=== PATIENT | female | born 1970 | race Caucasian/White ===

== ENCOUNTER 2019-09-30 17:19 | Observation (INO) ==
[2019-09-30] MEDS ORDERED: 0.9 % Sodium Chloride 1,000 ML IVC ONE ×2 (18:04→20:19)
[2019-09-30 18:12] LABS: Bilirubin,Urine Negative (Negative); Blood,Urine Negative (Negative); Clarity,Urine Slightly Cloudy (Clear); Color,Urine Yellow (Yellow); Glucose,Urine (UA) 500 mg/dL (Normal); Ketones,Urine Negative (Negative); Leukocyte Esterase,Urine Trace (Negative); Nitrite,Urine Negative (Negative); Protein,Urine 100 mg/dL (Neg-Trace); Specific Gravity,Urine 1.015 (1.010-1.025); Urobilinogen,Urine Normal (Normal)
[2019-09-30 18:14] LABS: Bacteria,Urine Few per hpf (None-Few); Granular Casts,Urine Few per lpf (None Seen); RBC,Urine 0-3 per hpf (0-3); Squamous Epithelial Cell,Urine Many per hpf (None-Few)
[2019-09-30 18:26] LABS: Basophils # 0.1 K/mcL (0.0-0.2); Basophils % 0.8 %; Eosinophils # 0.3 K/mcL (0.0-0.6); Eosinophils % 2.4 %; Hemoglobin 14.6 g/dL (11.5-15.4); Immature Granulocytes % 0.4 % (0-4); Lymphocytes # 2.4 K/mcL (0.6-4.6); Lymphocytes % 22.8 %; Mean Corpuscular Hemoglobin 30.9 pg (28.0-33.3); Mean Corpuscular Volume 91.1 fL (83.0-100.0); Mean Platelet Volume 11.8 fL (9.4-12.4); Monocytes % 9.5 %; Neutrophils # 6.7 K/mcL (1.6-8.9); Platelet Count 335 K/mcL (140-400); Red Blood Count 4.72 M/mcL (3.82-4.97); Red Cell Distribution Width 13.1 % (11.5-14.5); Segmented Neutrophils % 64.1 %; White Blood Count 10.4 K/mcL (4.3-11.1)
[2019-09-30 18:42] LABS: Calcium 9.4 mg/dL (8.6-10.3); Magnesium 2.1 mg/dL (1.6-2.6); Potassium 4.2 mEq/L (3.5-5.1)
[2019-09-30] MEDS ORDERED: cefTRIAXone 1,000 MG in 0.9 % Sodium Chloride Mini Bag 100 ML IVPB ONE (18:55)
[2019-09-30] MEDS ORDERED: 0.9 % Sodium Chloride 1,000 ML ONE (19:34)
[2019-09-30] MEDS ORDERED: 0.9 % Sodium Chloride 1,000 ML IVC SCH (19:45)
[2019-09-30] MEDS ORDERED: Naloxone 0.4 MG/ML INJ IVP PRN (20:19)
[2019-09-30] MEDS ORDERED: (Subcutaneous Insulin Pump [T:Slim] 1 EACH) SQ SCH (20:19)
[2019-09-30] MEDS: 0.9 % Sodium Chloride 1,000 ML IVC SCH (20:46)
[2019-09-30] MEDS ORDERED: Gabapentin 300 MG CAPSULE PO SCH (21:00)
[2019-10-01] MEDS: 0.9 % Sodium Chloride 1,000 ML IVC SCH (04:20)
[2019-10-01 09:58] VITALS: BP 142/73
[2019-10-01 10:20] LABS: Basophils # 0.1 K/mcL (0.0-0.2); Basophils % 0.9 %; Eosinophils # 0.2 K/mcL (0.0-0.6); Eosinophils % 2.8 %; Hematocrit 39.8 % (35.3-44.9); Hemoglobin 13.2 g/dL (11.5-15.4); Immature Granulocytes % 0.4 % (0-4); Lymphocytes # 2.1 K/mcL (0.6-4.6); Lymphocytes % 25.2 %; Mean Corpuscular HGB Conc 33.2 g/dL (31.6-35.5); Mean Corpuscular Hemoglobin 30.9 pg (28.0-33.3); Mean Corpuscular Volume 93.2 fL (83.0-100.0); Mean Platelet Volume 11.9 fL (9.4-12.4); Monocytes # 0.7 K/mcL (0.0-1.3); Monocytes % 8.3 %; Neutrophils # 5.1 K/mcL (1.6-8.9); Platelet Count 308 K/mcL (140-400); Red Blood Count 4.27 M/mcL (3.82-4.97); Red Cell Distribution Width 13.4 % (11.5-14.5); Segmented Neutrophils % 62.4 %; White Blood Count 8.2 K/mcL (4.3-11.1)
[2019-10-01 10:46] LABS: Albumin 3.6 g/dL (3.5-5.7); Albumin/Globulin Ratio 1.4 (1.1-2.2); Bilirubin,Total 0.4 mg/dL (0.3-1.0); Calcium 8.3 mg/dL (8.6-10.3); Globulin 2.6 g/dL (2.4-3.5); Total Protein 6.2 g/dL (6.4-8.9)
== END 2019-10-01 11:15 | disposition home or self-care (01) ==
LOC: EMEROOPIK 17:19 → INPPIK 17:19
PROVIDERS: ADMIT Internal Medicine; ATTEND Internal Medicine

== ENCOUNTER 2020-08-01 13:08 | Inpatient (IN) ==
[2020-08-01] MEDS ORDERED: Nitroglycerin 0.4 MG TAB.SUBL SL PRN (14:43)
[2020-08-01] MEDS: Gabapentin 300 MG CAPSULE PO SCH (21:07)
[2020-08-01] MEDS ORDERED: *HR* Dextrose 50 % in Water (Vial) 50 ML VIAL IVP PRN (22:21)
[2020-08-01] MEDS ORDERED: Dextrose Gel 15 GM/37.5 ML TUBE PO PRN (22:21)
[2020-08-01] MEDS ORDERED: D5% in Water 1,000 ML IVC PRN (22:21)
[2020-08-01] MEDS ORDERED: Insulin DETEMIR 100 UNIT/ML per UNIT SUBQ ONE (22:30)
[2020-08-02] MEDS: Aspirin Enteric Coated 81 MG Tablet PO SCH (08:04)
[2020-08-02] MEDS: Isosorbide MONOnitrate (24 HR) 30 MG TAB.ER.24H PO SCH (08:05)
[2020-08-02] MEDS: Insulin LISPRO 300 UNITS/3 ML VIAL SUBQ SCH ×4 (08:07→21:14)
[2020-08-02] MEDS ORDERED: Insulin DETEMIR 100 UNIT/ML X5UNITS SUBQ SCH ×2 (09:00→21:00)
[2020-08-02] MEDS: Micafungin 100 MG in 0.9 % Sodium Chloride Mini Bag 100 ML IVPB SCH (18:55)
[2020-08-02] MEDS ORDERED: cefTRIAXone 2,000 MG in Water for inj. (sterile) 20 ML IVP SCH (19:00)
[2020-08-02] MEDS: Gabapentin 300 MG CAPSULE PO SCH (21:15)
[2020-08-02] MEDS: DAPTOmycin 400 MG in 0.9 % Sodium Chloride 100 ML IVPB SCH (21:52)
[2020-08-02] MEDS: Vancomycin Oral Soln 125 MG/2.5 ML UDC PO SCH (21:54)
[2020-08-02] MEDS ORDERED: Erythromycin Lactobionate 250 MG in 0.9 % Sodium Chloride 100 ML IVPB SCH (22:00)
[2020-08-03] MEDS: Dextrose Gel 15 GM/37.5 ML TUBE PO PRN ×2 (05:55→05:56)
[2020-08-03 07:10] LABS: Hematocrit 31.9 % (35.3-44.9); Hemoglobin 10.1 g/dL (11.5-15.4); Mean Corpuscular HGB Conc 31.7 g/dL (31.6-35.5); Mean Corpuscular Hemoglobin 29.7 pg (28.0-33.3); Mean Corpuscular Volume 93.8 fL (83.0-100.0); Mean Platelet Volume 10.5 fL (9.4-12.4); Platelet Count 628 K/mcL (140-400); Red Cell Distribution Width 23.2 % (11.5-14.5); White Blood Count 19.7 K/mcL (4.3-11.1)
[2020-08-03 08:23] LABS: BUN/Creatinine Ratio 17 (6-26); Blood Urea Nitrogen 9 mg/dL (6-20); Calcium 8.1 mg/dL (8.6-10.3); Carbon Dioxide 33 mEq/L (23-29); Chloride 94 mEq/L (98-107); Glucose 51 mg/dL (70-105); Magnesium 1.3 mg/dL (1.6-2.6); Osmolality,Calculated 278 (280-300); Potassium 3.1 mEq/L (3.5-5.1); Sodium 136 mEq/L (136-145); eGFR For African Americans > 60 (> 60); eGFR For Non-African Americans > 60 (> 60)
[2020-08-03] MEDS: Insulin LISPRO 300 UNITS/3 ML VIAL SUBQ SCH ×4 (08:25→21:09)
[2020-08-03] MEDS ORDERED: D5% in 0.9% NACL 1,000 ML IVC SCH (08:45)
[2020-08-03 09:02] LABS: Basophils % 0.2 %; Eosinophils # 0.3 K/mcL (0.0-0.6); Eosinophils % 1.3 %; Hematocrit 27.9 % (35.3-44.9); Hemoglobin 8.8 g/dL (11.5-15.4); Immature Granulocytes % 0.5 % (0-4); Lymphocytes # 1.5 K/mcL (0.6-4.6); Lymphocytes % 6.6 %; Mean Corpuscular HGB Conc 31.5 g/dL (31.6-35.5); Mean Corpuscular Hemoglobin 29.5 pg (28.0-33.3); Mean Corpuscular Volume 93.6 fL (83.0-100.0); Mean Platelet Volume 10.4 fL (9.4-12.4); Monocytes # 1.5 K/mcL (0.0-1.3); Monocytes % 6.9 %; Platelet Count 527 K/mcL (140-400); Red Blood Count 2.98 M/mcL (3.82-4.97); Segmented Neutrophils % 84.5 %; White Blood Count 22.3 K/mcL (4.3-11.1)
[2020-08-03 09:10] LABS: ABG Base Excess 6 mEq/L (-2 to 3); ABG HCO3 32 mEq/L (21-27); ABG Oxygen Saturation 91 % (95-98); ABG PCO2 47 mmHg (35-45); ABG PH 7.44 pH Units (7.32-7.45); ABG PO2 59 mmHg (85-104); ABG TCO2 33 mEq/L (20-26)
[2020-08-03 09:14] LABS: Neutrophils # 18.8 K/mcL (1.6-8.9)
[2020-08-03 09:20] LABS: Albumin/Globulin Ratio 0.6 (1.1-2.2); Bilirubin,Direct 0.4 mg/dL (0.0-0.2); Bilirubin,Indirect 0.5 mg/dL (0.0-1.0); Bilirubin,Total 0.9 mg/dL (0.3-1.0); Globulin 3.1 g/dL (2.4-3.5); Total Protein 5.1 g/dL (6.4-8.9)
[2020-08-03 10:03] LABS: C-Reactive Protein 137 mg/L (Less than 10)
[2020-08-03] MEDS: Azithromycin 500 MG in 0.9 % Sodium Chloride 250 ML IVPB SCH (11:22)
[2020-08-03] MEDS: Aspirin Enteric Coated 81 MG Tablet PO SCH (11:28)
[2020-08-03] MEDS: Isosorbide MONOnitrate (24 HR) 30 MG TAB.ER.24H PO SCH (11:28)
[2020-08-03] MEDS: Vancomycin Oral Soln 125 MG/2.5 ML UDC PO SCH ×2 (11:40→21:08)
[2020-08-03] MEDS: Acetaminophen 325 MG TABLET PO PRN (12:24)
[2020-08-03] MEDS: Ondansetron ODT 4 MG TAB.RAPDIS SL PRN (14:11)
[2020-08-03] MEDS: cefTRIAXone 2,000 MG in 0.9 % Sodium Chloride Mini Bag 100 ML IVP SCH (18:28)
[2020-08-03] MEDS: Micafungin 100 MG in 0.9 % Sodium Chloride Mini Bag 100 ML IVPB SCH (18:58)
[2020-08-03] MEDS ORDERED: cefTRIAXone 2,000 MG in 0.9 % Sodium Chloride Mini Bag 100 ML IVP SCH (19:00)
[2020-08-03] MEDS: DAPTOmycin 400 MG in 0.9 % Sodium Chloride 100 ML IVPB SCH (21:07)
[2020-08-03] MEDS: Gabapentin 300 MG CAPSULE PO SCH (21:08)
[2020-08-04 07:39] LABS: BUN/Creatinine Ratio 16 (6-26); Blood Urea Nitrogen 8 mg/dL (6-20); Calcium 7.5 mg/dL (8.6-10.3); Carbon Dioxide 32 mEq/L (23-29); Chloride 92 mEq/L (98-107); Glucose 392 mg/dL (70-105); Magnesium 1.5 mg/dL (1.6-2.6); Osmolality,Calculated 289 (280-300); Potassium 3.8 mEq/L (3.5-5.1); Sodium 132 mEq/L (136-145); eGFR For African Americans > 60 (> 60); eGFR For Non-African Americans > 60 (> 60)
[2020-08-04] MEDS: Insulin LISPRO 300 UNITS/3 ML VIAL SUBQ SCH ×4 (07:58→21:24)
[2020-08-04] MEDS: Isosorbide MONOnitrate (24 HR) 30 MG TAB.ER.24H PO SCH (08:12)
[2020-08-04] MEDS: Aspirin Enteric Coated 81 MG Tablet PO SCH (08:12)
[2020-08-04] MEDS: Vancomycin Oral Soln 125 MG/2.5 ML UDC PO SCH ×2 (08:19→22:27)
[2020-08-04] MEDS: Azithromycin 500 MG in 0.9 % Sodium Chloride 250 ML IVPB SCH (08:21)
[2020-08-04] MEDS ORDERED: Insulin DETEMIR 100 UNIT/ML X5UNITS SUBQ SCH ×2 (09:00→21:00)
[2020-08-04] MEDS: Magnesium Oxide 400 MG TABLET PO SCH (12:12)
[2020-08-04] MEDS: Ondansetron ODT 4 MG TAB.RAPDIS SL PRN ×2 (13:11→18:51)
[2020-08-04] MEDS: cefTRIAXone 2,000 MG in 0.9 % Sodium Chloride Mini Bag 100 ML IVP SCH (17:56)
[2020-08-04] MEDS: Micafungin 100 MG in 0.9 % Sodium Chloride Mini Bag 100 ML IVPB SCH (18:34)
[2020-08-04] MEDS: DAPTOmycin 400 MG in 0.9 % Sodium Chloride 100 ML IVPB SCH (22:26)
[2020-08-04] MEDS: Gabapentin 300 MG CAPSULE PO SCH (22:27)
[2020-08-04] MEDS: Acetaminophen 325 MG TABLET PO PRN (22:40)
[2020-08-05] MEDS: Lidocaine 4% CREAM (LMX) 5 GM TP PRN (01:33)
[2020-08-05] MEDS: Magnesium Oxide 400 MG TABLET PO SCH (09:25)
[2020-08-05] MEDS: Isosorbide MONOnitrate (24 HR) 30 MG TAB.ER.24H PO SCH (09:25)
[2020-08-05] MEDS: Aspirin Enteric Coated 81 MG Tablet PO SCH (09:26)
[2020-08-05] MEDS: Insulin LISPRO 300 UNITS/3 ML VIAL SUBQ SCH ×4 (09:26→21:47)
[2020-08-05] MEDS: Insulin DETEMIR 100 UNIT/ML X5UNITS SUBQ SCH (09:26)
[2020-08-05] MEDS: Vancomycin Oral Soln 125 MG/2.5 ML UDC PO SCH ×2 (09:26→21:40)
[2020-08-05] MEDS: Azithromycin 500 MG in 0.9 % Sodium Chloride 250 ML IVPB SCH (09:27)
[2020-08-05] MEDS: lisinopriL 5 MG TABLET PO SCH (09:27)
[2020-08-05 09:48] LABS: Basophils # 0.1 K/mcL (0.0-0.2); Basophils % 0.8 %; Eosinophils # 0.4 K/mcL (0.0-0.6); Eosinophils % 2.8 %; Hematocrit 28.9 % (35.3-44.9); Hemoglobin 9.4 g/dL (11.5-15.4); Immature Granulocytes % 0.6 % (0-4); Lymphocytes # 1.7 K/mcL (0.6-4.6); Lymphocytes % 12.9 %; Mean Corpuscular HGB Conc 32.5 g/dL (31.6-35.5); Mean Corpuscular Volume 92.3 fL (83.0-100.0); Mean Platelet Volume 10.5 fL (9.4-12.4); Monocytes # 1.3 K/mcL (0.0-1.3); Monocytes % 9.3 %; Neutrophils # 9.9 K/mcL (1.6-8.9); Platelet Count 574 K/mcL (140-400); Red Blood Count 3.13 M/mcL (3.82-4.97); Red Cell Distribution Width 21.2 % (11.5-14.5); Segmented Neutrophils % 73.6 %; White Blood Count 13.4 K/mcL (4.3-11.1)
[2020-08-05 10:16] LABS: Alanine Aminotransferase 17 Units/L (7-52); Albumin 2.3 g/dL (3.5-5.7); Albumin/Globulin Ratio 0.7 (1.1-2.2); Alkaline Phosphatase > 1500 Units/L (34-104); Aspartate Amino Transferase 49 Units/L (13-39); BUN/Creatinine Ratio 17 (6-26); Blood Urea Nitrogen 10 mg/dL (6-20); Carbon Dioxide 31 mEq/L (23-29); Chloride 93 mEq/L (98-107); Globulin 3.3 g/dL (2.4-3.5); Glucose 176 mg/dL (70-105); Osmolality,Calculated 277 (280-300); Potassium 3.9 mEq/L (3.5-5.1); Sodium 132 mEq/L (136-145); Total Protein 5.6 g/dL (6.4-8.9); eGFR For African Americans > 60 (> 60); eGFR For Non-African Americans > 60 (> 60)
[2020-08-05] MEDS: Micafungin 100 MG in 0.9 % Sodium Chloride Mini Bag 100 ML IVPB SCH (17:33)
[2020-08-05] MEDS: cefTRIAXone 2,000 MG in 0.9 % Sodium Chloride Mini Bag 100 ML IVP SCH (17:34)
[2020-08-05] MEDS: Gabapentin 300 MG CAPSULE PO SCH (21:40)
[2020-08-05] MEDS: DAPTOmycin 400 MG in 0.9 % Sodium Chloride 100 ML IVPB SCH (21:40)
[2020-08-06] MEDS: Aspirin Enteric Coated 81 MG Tablet PO SCH (08:35)
[2020-08-06] MEDS: Magnesium Oxide 400 MG TABLET PO SCH (08:35)
[2020-08-06] MEDS: Isosorbide MONOnitrate (24 HR) 30 MG TAB.ER.24H PO SCH (08:36)
[2020-08-06] MEDS: lisinopriL 5 MG TABLET PO SCH (08:36)
[2020-08-06] MEDS: Vancomycin Oral Soln 125 MG/2.5 ML UDC PO SCH ×2 (08:36→20:30)
[2020-08-06] MEDS: Azithromycin 500 MG in 0.9 % Sodium Chloride 250 ML IVPB SCH (08:38)
[2020-08-06] MEDS: Insulin DETEMIR 100 UNIT/ML X5UNITS SUBQ SCH (08:39)
[2020-08-06] MEDS: Insulin LISPRO 300 UNITS/3 ML VIAL SUBQ SCH ×4 (08:40→20:29)
[2020-08-06] MEDS: cefTRIAXone 2,000 MG in 0.9 % Sodium Chloride Mini Bag 100 ML IVP SCH (17:02)
[2020-08-06] MEDS: Micafungin 100 MG in 0.9 % Sodium Chloride Mini Bag 100 ML IVPB SCH (17:55)
[2020-08-06] MEDS: Ondansetron ODT 4 MG TAB.RAPDIS SL PRN (18:00)
[2020-08-06] MEDS: DAPTOmycin 400 MG in 0.9 % Sodium Chloride 100 ML IVPB SCH (20:45)
[2020-08-06] MEDS: Gabapentin 300 MG CAPSULE PO SCH (20:56)
[2020-08-07] MEDS: Azithromycin 500 MG in 0.9 % Sodium Chloride 250 ML IVPB SCH (08:34)
[2020-08-07] MEDS: Isosorbide MONOnitrate (24 HR) 30 MG TAB.ER.24H PO SCH (08:36)
[2020-08-07] MEDS: Magnesium Oxide 400 MG TABLET PO SCH (08:36)
[2020-08-07] MEDS: Aspirin Enteric Coated 81 MG Tablet PO SCH (08:36)
[2020-08-07] MEDS: lisinopriL 5 MG TABLET PO SCH (08:36)
[2020-08-07] MEDS: Vancomycin Oral Soln 125 MG/2.5 ML UDC PO SCH ×2 (08:38→20:51)
[2020-08-07] MEDS: Insulin LISPRO 300 UNITS/3 ML VIAL SUBQ SCH ×4 (08:40→20:53)
[2020-08-07] MEDS: metroNIDAZOLE 500 MG TABLET PO SCH ×2 (14:09→20:51)
[2020-08-07] MEDS: Micafungin 100 MG in 0.9 % Sodium Chloride Mini Bag 100 ML IVPB SCH (18:01)
[2020-08-07] MEDS: DAPTOmycin 600 MG in 0.9 % Sodium Chloride 100 ML IVPB SCH (20:50)
[2020-08-07] MEDS: Gabapentin 300 MG CAPSULE PO SCH (20:51)
[2020-08-07] MEDS: Cefdinir 300 MG CAPSULE PO SCH (20:53)
[2020-08-08] MEDS ORDERED: Insulin LISPRO 300 UNITS/3 ML VIAL SUBQ ONE (00:57)
[2020-08-08] MEDS: Ondansetron ODT 4 MG TAB.RAPDIS SL PRN ×2 (01:02→20:35)
[2020-08-08] MEDS: Insulin LISPRO 300 UNITS/3 ML VIAL SUBQ SCH ×4 (08:40→20:36)
[2020-08-08] MEDS: Azithromycin 500 MG in 0.9 % Sodium Chloride 250 ML IVPB SCH (08:40)
[2020-08-08] MEDS: Vancomycin Oral Soln 125 MG/2.5 ML UDC PO SCH ×2 (08:41→20:26)
[2020-08-08] MEDS: Acetaminophen 325 MG TABLET PO PRN ×2 (08:41→20:28)
[2020-08-08] MEDS: metroNIDAZOLE 500 MG TABLET PO SCH ×2 (08:42→20:32)
[2020-08-08] MEDS: Cefdinir 300 MG CAPSULE PO SCH ×2 (08:42→20:32)
[2020-08-08] MEDS: Aspirin Enteric Coated 81 MG Tablet PO SCH (08:42)
[2020-08-08] MEDS: Isosorbide MONOnitrate (24 HR) 30 MG TAB.ER.24H PO SCH (08:43)
[2020-08-08] MEDS: Magnesium Oxide 400 MG TABLET PO SCH (08:43)
[2020-08-08] MEDS: lisinopriL 5 MG TABLET PO SCH (08:43)
[2020-08-08] MEDS: Micafungin 100 MG in 0.9 % Sodium Chloride Mini Bag 100 ML IVPB SCH (19:19)
[2020-08-08] MEDS: DAPTOmycin 600 MG in 0.9 % Sodium Chloride 100 ML IVPB SCH (20:26)
[2020-08-08] MEDS: Gabapentin 300 MG CAPSULE PO SCH (20:32)
[2020-08-09] MEDS ORDERED: Insulin LISPRO 300 UNITS/3 ML VIAL SUBQ SCH (03:04)
[2020-08-09] MEDS ORDERED: Insulin LISPRO 300 UNITS/3 ML VIAL SUBQ ONE (03:04)
[2020-08-09] MEDS: Azithromycin 500 MG in 0.9 % Sodium Chloride 250 ML IVPB SCH (07:52)
[2020-08-09] MEDS: Vancomycin Oral Soln 125 MG/2.5 ML UDC PO SCH ×2 (07:52→22:32)
[2020-08-09] MEDS: Aspirin Enteric Coated 81 MG Tablet PO SCH (07:53)
[2020-08-09] MEDS: Cefdinir 300 MG CAPSULE PO SCH ×2 (07:53→22:33)
[2020-08-09] MEDS: Isosorbide MONOnitrate (24 HR) 30 MG TAB.ER.24H PO SCH (07:53)
[2020-08-09] MEDS: Magnesium Oxide 400 MG TABLET PO SCH (07:53)
[2020-08-09] MEDS: metroNIDAZOLE 500 MG TABLET PO SCH ×2 (07:53→22:33)
[2020-08-09] MEDS: lisinopriL 5 MG TABLET PO SCH (07:54)
[2020-08-09] MEDS: Insulin LISPRO 300 UNITS/3 ML VIAL SUBQ SCH ×4 (07:55→22:47)
[2020-08-09] MEDS: Erythromycin Lactobionate 250 MG in 0.9 % Sodium Chloride 100 ML IVPB SCH ×2 (10:02→17:26)
[2020-08-09] MEDS: Micafungin 100 MG in 0.9 % Sodium Chloride Mini Bag 100 ML IVPB SCH (19:25)
[2020-08-09] MEDS: Ondansetron ODT 4 MG TAB.RAPDIS SL PRN (20:15)
[2020-08-09] MEDS ORDERED: Insulin DETEMIR 100 UNIT/ML X5UNITS SUBQ SCH (21:00)
[2020-08-09] MEDS: DAPTOmycin 600 MG in 0.9 % Sodium Chloride 100 ML IVPB SCH (22:32)
[2020-08-09] MEDS: Gabapentin 300 MG CAPSULE PO SCH (22:33)
[2020-08-10] MEDS: Erythromycin Lactobionate 250 MG in 0.9 % Sodium Chloride 100 ML IVPB SCH ×3 (02:36→18:07)
[2020-08-10 06:40] LABS: Basophils # 0.2 K/mcL (0.0-0.2); Basophils % 1.3 %; Eosinophils # 0.5 K/mcL (0.0-0.6); Eosinophils % 4.4 %; Hematocrit 31.6 % (35.3-44.9); Hemoglobin 10.3 g/dL (11.5-15.4); Immature Granulocytes % 0.4 % (0-4); Lymphocytes # 1.9 K/mcL (0.6-4.6); Lymphocytes % 16.7 %; Mean Corpuscular HGB Conc 32.6 g/dL (31.6-35.5); Mean Corpuscular Hemoglobin 30.5 pg (28.0-33.3); Mean Corpuscular Volume 93.5 fL (83.0-100.0); Mean Platelet Volume 10.2 fL (9.4-12.4); Monocytes # 0.7 K/mcL (0.0-1.3); Neutrophils # 8.1 K/mcL (1.6-8.9); Platelet Count 667 K/mcL (140-400); Red Blood Count 3.38 M/mcL (3.82-4.97); Red Cell Distribution Width 20.7 % (11.5-14.5); Segmented Neutrophils % 71.2 %; White Blood Count 11.3 K/mcL (4.3-11.1)
[2020-08-10 07:42] LABS: BUN/Creatinine Ratio 22 (6-26); Blood Urea Nitrogen 13 mg/dL (6-20); Carbon Dioxide 27 mEq/L (23-29); Chloride 100 mEq/L (98-107); Osmolality,Calculated 277 (280-300); Potassium 3.2 mEq/L (3.5-5.1); eGFR For African Americans > 60 (> 60); eGFR For Non-African Americans > 60 (> 60)
[2020-08-10 07:43] LABS: Sodium 135 mEq/L (136-145)
[2020-08-10] MEDS: Insulin LISPRO 300 UNITS/3 ML VIAL SUBQ SCH ×4 (07:58→20:31)
[2020-08-10] MEDS: metroNIDAZOLE 500 MG TABLET PO SCH ×2 (08:30→20:31)
[2020-08-10] MEDS: Vancomycin Oral Soln 125 MG/2.5 ML UDC PO SCH ×2 (08:30→20:28)
[2020-08-10] MEDS: Magnesium Oxide 400 MG TABLET PO SCH (08:30)
[2020-08-10] MEDS: lisinopriL 5 MG TABLET PO SCH (08:30)
[2020-08-10] MEDS: Aspirin Enteric Coated 81 MG Tablet PO SCH (08:31)
[2020-08-10] MEDS: Isosorbide MONOnitrate (24 HR) 30 MG TAB.ER.24H PO SCH (08:31)
[2020-08-10] MEDS: Cefdinir 300 MG CAPSULE PO SCH ×2 (08:31→20:30)
[2020-08-10] MEDS: Micafungin 100 MG in 0.9 % Sodium Chloride Mini Bag 100 ML IVPB SCH (18:57)
[2020-08-10] MEDS: Gabapentin 300 MG CAPSULE PO SCH (20:31)
[2020-08-10] MEDS: DAPTOmycin 600 MG in 0.9 % Sodium Chloride 100 ML IVPB SCH (20:32)
[2020-08-11] MEDS: Erythromycin Lactobionate 250 MG in 0.9 % Sodium Chloride 100 ML IVPB SCH ×3 (00:25→16:51)
[2020-08-11] MEDS: Lidocaine 4% CREAM (LMX) 5 GM TP PRN (01:00)
[2020-08-11] MEDS: Cefdinir 300 MG CAPSULE PO SCH ×2 (08:20→21:02)
[2020-08-11] MEDS: Aspirin Enteric Coated 81 MG Tablet PO SCH (08:20)
[2020-08-11] MEDS: Magnesium Oxide 400 MG TABLET PO SCH (08:21)
[2020-08-11] MEDS: lisinopriL 5 MG TABLET PO SCH (08:21)
[2020-08-11] MEDS: Isosorbide MONOnitrate (24 HR) 30 MG TAB.ER.24H PO SCH (08:21)
[2020-08-11] MEDS: Vancomycin Oral Soln 125 MG/2.5 ML UDC PO SCH ×2 (08:21→21:03)
[2020-08-11] MEDS: metroNIDAZOLE 500 MG TABLET PO SCH ×2 (08:21→21:04)
[2020-08-11] MEDS: Insulin LISPRO 300 UNITS/3 ML VIAL SUBQ SCH ×4 (08:22→21:04)
[2020-08-11] MEDS: Micafungin 100 MG in 0.9 % Sodium Chloride Mini Bag 100 ML IVPB SCH (18:47)
[2020-08-11] MEDS: Acetaminophen 325 MG TABLET PO PRN (18:58)
[2020-08-11] MEDS: DAPTOmycin 600 MG in 0.9 % Sodium Chloride 100 ML IVPB SCH (21:02)
[2020-08-11] MEDS: Gabapentin 300 MG CAPSULE PO SCH (21:02)
[2020-08-12] MEDS: Erythromycin Lactobionate 250 MG in 0.9 % Sodium Chloride 100 ML IVPB SCH ×3 (00:35→19:05)
[2020-08-12] MEDS ORDERED: Insulin LISPRO 300 UNITS/3 ML VIAL SUBQ ONE (00:39)
[2020-08-12 06:45] LABS: Basophils # 0.2 K/mcL (0.0-0.2); Basophils % 1.6 %; Eosinophils # 0.5 K/mcL (0.0-0.6); Eosinophils % 5.5 %; Hematocrit 28.7 % (35.3-44.9); Hemoglobin 9.2 g/dL (11.5-15.4); Immature Granulocytes % 0.4 % (0-4); Lymphocytes # 1.5 K/mcL (0.6-4.6); Lymphocytes % 15.8 %; Mean Corpuscular HGB Conc 32.1 g/dL (31.6-35.5); Mean Corpuscular Hemoglobin 30.4 pg (28.0-33.3); Mean Corpuscular Volume 94.7 fL (83.0-100.0); Mean Platelet Volume 10.7 fL (9.4-12.4); Monocytes # 0.6 K/mcL (0.0-1.3); Monocytes % 6.3 %; Neutrophils # 6.8 K/mcL (1.6-8.9); Platelet Count 670 K/mcL (140-400); Red Blood Count 3.03 M/mcL (3.82-4.97); Red Cell Distribution Width 21.2 % (11.5-14.5); Segmented Neutrophils % 70.4 %; White Blood Count 9.7 K/mcL (4.3-11.1)
[2020-08-12 07:37] LABS: Alanine Aminotransferase 64 Units/L (7-52); Albumin 2.5 g/dL (3.5-5.7); Albumin/Globulin Ratio 0.8 (1.1-2.2); Alkaline Phosphatase > 1500 Units/L (34-104); Aspartate Amino Transferase 211 Units/L (13-39); BUN/Creatinine Ratio 26 (6-26); Bilirubin,Direct 0.6 mg/dL (0.0-0.2); Bilirubin,Indirect 0.7 mg/dL (0.0-1.0); Bilirubin,Total 1.3 mg/dL (0.3-1.0); Blood Urea Nitrogen 13 mg/dL (6-20); Calcium 8.8 mg/dL (8.6-10.3); Carbon Dioxide 25 mEq/L (23-29); Chloride 100 mEq/L (98-107); Creatine Kinase 14 Units/L (30-223); Globulin 3.3 g/dL (2.4-3.5); Glucose 222 mg/dL (70-105); Osmolality,Calculated 283 (280-300); Potassium 4.1 mEq/L (3.5-5.1); Sodium 133 mEq/L (136-145); Total Protein 5.8 g/dL (6.4-8.9); eGFR For African Americans > 60 (> 60); eGFR For Non-African Americans > 60 (> 60)
[2020-08-12] MEDS: Aspirin Enteric Coated 81 MG Tablet PO SCH (09:24)
[2020-08-12] MEDS: Isosorbide MONOnitrate (24 HR) 30 MG TAB.ER.24H PO SCH (09:25)
[2020-08-12] MEDS: Vancomycin Oral Soln 125 MG/2.5 ML UDC PO SCH ×2 (09:25→21:04)
[2020-08-12] MEDS: Cefdinir 300 MG CAPSULE PO SCH ×2 (09:25→21:05)
[2020-08-12] MEDS: Magnesium Oxide 400 MG TABLET PO SCH (09:25)
[2020-08-12] MEDS: metroNIDAZOLE 500 MG TABLET PO SCH ×2 (09:25→21:05)
[2020-08-12] MEDS: lisinopriL 5 MG TABLET PO SCH (09:25)
[2020-08-12] MEDS: Insulin LISPRO 300 UNITS/3 ML VIAL SUBQ SCH ×4 (09:40→20:13)
[2020-08-12 10:41] LABS: Estimated Average Glucose 186 mg/dl; Hemoglobin A1C 8.1 %
[2020-08-12] MEDS: Micafungin 100 MG in 0.9 % Sodium Chloride Mini Bag 100 ML IVPB SCH (19:42)
[2020-08-12] MEDS ORDERED: Insulin DETEMIR 100 UNIT/ML per UNIT SUBQ ONE (21:00)
[2020-08-12] MEDS: Gabapentin 300 MG CAPSULE PO SCH (21:04)
[2020-08-12] MEDS: DAPTOmycin 600 MG in 0.9 % Sodium Chloride 100 ML IVPB SCH (21:05)
[2020-08-12] MEDS: Ondansetron ODT 4 MG TAB.RAPDIS SL PRN (21:19)
[2020-08-13] MEDS: Erythromycin Lactobionate 250 MG in 0.9 % Sodium Chloride 100 ML IVPB SCH ×4 (01:44→23:51)
[2020-08-13] MEDS: Insulin LISPRO 300 UNITS/3 ML VIAL SUBQ SCH ×4 (08:35→23:35)
[2020-08-13 09:03] LABS: Glucose 36 mg/dL (70-105)
[2020-08-13] MEDS: Isosorbide MONOnitrate (24 HR) 30 MG TAB.ER.24H PO SCH (09:21)
[2020-08-13] MEDS: metroNIDAZOLE 500 MG TABLET PO SCH ×2 (09:22→22:32)
[2020-08-13] MEDS: Magnesium Oxide 400 MG TABLET PO SCH (09:22)
[2020-08-13] MEDS: Aspirin Enteric Coated 81 MG Tablet PO SCH (09:22)
[2020-08-13] MEDS: lisinopriL 5 MG TABLET PO SCH (09:22)
[2020-08-13] MEDS: Vancomycin Oral Soln 125 MG/2.5 ML UDC PO SCH ×2 (09:23→22:31)
[2020-08-13] MEDS: Cefdinir 300 MG CAPSULE PO SCH ×2 (09:23→22:32)
[2020-08-13] MEDS: Gabapentin 300 MG CAPSULE PO SCH (22:31)
[2020-08-13] MEDS: Micafungin 100 MG in 0.9 % Sodium Chloride Mini Bag 100 ML IVPB SCH (22:31)
[2020-08-13] MEDS: DAPTOmycin 600 MG in 0.9 % Sodium Chloride 100 ML IVPB SCH (23:52)
[2020-08-14] MEDS: Insulin LISPRO 300 UNITS/3 ML VIAL SUBQ SCH ×4 (08:34→20:47)
[2020-08-14] MEDS: Ondansetron ODT 4 MG TAB.RAPDIS SL PRN ×2 (08:39→17:25)
[2020-08-14] MEDS: lisinopriL 5 MG TABLET PO SCH (10:19)
[2020-08-14] MEDS: Cefdinir 300 MG CAPSULE PO SCH ×2 (10:19→20:46)
[2020-08-14] MEDS: Aspirin Enteric Coated 81 MG Tablet PO SCH (10:19)
[2020-08-14] MEDS: metroNIDAZOLE 500 MG TABLET PO SCH ×2 (10:19→20:46)
[2020-08-14] MEDS: Magnesium Oxide 400 MG TABLET PO SCH (10:19)
[2020-08-14] MEDS: Isosorbide MONOnitrate (24 HR) 30 MG TAB.ER.24H PO SCH (10:19)
[2020-08-14] MEDS: Vancomycin Oral Soln 125 MG/2.5 ML UDC PO SCH (10:20)
[2020-08-14] MEDS: Erythromycin Lactobionate 250 MG in 0.9 % Sodium Chloride 100 ML IVPB SCH ×2 (10:20→16:17)
[2020-08-14] MEDS: Acetaminophen 325 MG TABLET PO PRN (17:24)
[2020-08-14] MEDS: Micafungin 100 MG in 0.9 % Sodium Chloride Mini Bag 100 ML IVPB SCH (17:26)
[2020-08-14] MEDS: Gabapentin 300 MG CAPSULE PO SCH (20:47)
[2020-08-14] MEDS: DAPTOmycin 600 MG in 0.9 % Sodium Chloride 100 ML IVPB SCH (20:55)
[2020-08-15] MEDS: Erythromycin Lactobionate 250 MG in 0.9 % Sodium Chloride 100 ML IVPB SCH ×2 (00:58→09:16)
[2020-08-15 07:18] VITALS: BP 182/91
[2020-08-15] MEDS: Insulin LISPRO 300 UNITS/3 ML VIAL SUBQ SCH ×2 (09:12→12:42)
[2020-08-15] MEDS: Magnesium Oxide 400 MG TABLET PO SCH (09:15)
[2020-08-15] MEDS: metroNIDAZOLE 500 MG TABLET PO SCH (09:15)
[2020-08-15] MEDS: Isosorbide MONOnitrate (24 HR) 30 MG TAB.ER.24H PO SCH (09:15)
[2020-08-15] MEDS: Aspirin Enteric Coated 81 MG Tablet PO SCH (09:15)
[2020-08-15] MEDS: lisinopriL 5 MG TABLET PO SCH (09:16)
[2020-08-15] MEDS: Cefdinir 300 MG CAPSULE PO SCH (09:16)
[2020-08-15] MEDS ORDERED: Erythromycin Lactobionate 250 MG in 0.9 % Sodium Chloride 100 ML IVPB SCH (14:30)
== END 2020-08-15 17:09 | disposition home health service (06) | DRG 945 ==
LOC: INPPIK 13:33
PROVIDERS: ADMIT Family Medicine; ATTEND Family Medicine

== ENCOUNTER 2021-02-25 18:19 | Inpatient (IN) ==
[2021-02-26] MEDS ORDERED: D5% in Water 1,000 ML IVC PRN (16:25)
[2021-02-26] MEDS ORDERED: Dextrose Gel 15 GM/37.5 ML TUBE PO PRN ×2 (16:25)
[2021-02-26] MEDS: Insulin LISPRO 300 UNITS/3 ML VIAL SUBQ SCH (20:21)
[2021-02-26] MEDS: *HR* OxyCODONE Immed Rel 5 MG TABLET PO PRN (20:30)
[2021-02-26] MEDS: Gabapentin 300 MG CAPSULE PO SCH (20:31)
[2021-02-26] MEDS: Mirtazapine 15 MG TABLET PO SCH (20:31)
[2021-02-27] MEDS: Aspirin Enteric Coated 81 MG Tablet PO SCH (09:08)
[2021-02-27] MEDS: Folic Acid 1 MG TABLET PO SCH (09:08)
[2021-02-27] MEDS: Insulin LISPRO 300 UNITS/3 ML VIAL SUBQ SCH ×3 (09:10→16:12)
[2021-02-27 09:56] LABS: Basophils # 0.1 K/mcL (0.0-0.2); Basophils % 0.9 %; Eosinophils # 0.1 K/mcL (0.0-0.6); Eosinophils % 0.7 %; Hematocrit 25.3 % (35.3-44.9); Hemoglobin 8.2 g/dL (11.5-15.4); Immature Granulocytes % 0.4 % (0-4); Lymphocytes # 1.2 K/mcL (0.6-4.6); Lymphocytes % 12.1 %; Mean Corpuscular HGB Conc 32.4 g/dL (31.6-35.5); Mean Corpuscular Hemoglobin 29.6 pg (28.0-33.3); Mean Corpuscular Volume 91.3 fL (83.0-100.0); Monocytes # 0.7 K/mcL (0.0-1.3); Monocytes % 6.7 %; Neutrophils # 8.2 K/mcL (1.6-8.9); Platelet Count 494 K/mcL (140-400); Red Blood Count 2.77 M/mcL (3.82-4.97); Red Cell Distribution Width 25.2 % (11.5-14.5); Segmented Neutrophils % 79.2 %; White Blood Count 10.3 K/mcL (4.3-11.1)
[2021-02-27 10:08] LABS: BUN/Creatinine Ratio 18 (6-26); Blood Urea Nitrogen 12 mg/dL (6-20); Calcium 8.5 mg/dL (8.6-10.3); Carbon Dioxide 29 mEq/L (23-29); Chloride 96 mEq/L (98-107); Glucose 212 mg/dL (70-105); Osmolality,Calculated 284 (280-300); Potassium 3.6 mEq/L (3.5-5.1); Sodium 134 mEq/L (136-145); eGFR For African Americans > 60 (> 60); eGFR For Non-African Americans > 60 (> 60)
[2021-02-27 10:28] LABS: Anisocytosis 3+ (Not Present); Platelet Estimate Increased (Normal)
[2021-02-27 10:29] LABS: Hypochromasia Present (Not Present); Poikilocytosis 2+ (Not Present); Stomatocytes 2+ (Not Present)
[2021-02-27] MEDS: Gabapentin 300 MG CAPSULE PO SCH (20:50)
[2021-02-27] MEDS: Mirtazapine 15 MG TABLET PO SCH (20:50)
[2021-02-27] MEDS: Apixaban 5 MG TABLET PO SCH (20:50)
[2021-02-28] MEDS: Apixaban 5 MG TABLET PO SCH ×2 (08:08→21:35)
[2021-02-28] MEDS: Insulin LISPRO 300 UNITS/3 ML VIAL SUBQ SCH ×3 (08:08→17:15)
[2021-02-28] MEDS: Folic Acid 1 MG TABLET PO SCH (08:08)
[2021-02-28] MEDS: Aspirin Enteric Coated 81 MG Tablet PO SCH (08:08)
[2021-02-28] MEDS: Mirtazapine 15 MG TABLET PO SCH (21:34)
[2021-02-28] MEDS: Gabapentin 300 MG CAPSULE PO SCH (21:34)
[2021-03-01 07:48] LABS: Basophils # 0.1 K/mcL (0.0-0.2); Basophils % 0.9 %; Eosinophils # 0.2 K/mcL (0.0-0.6); Eosinophils % 1.4 %; Hematocrit 25.2 % (35.3-44.9); Hemoglobin 7.9 g/dL (11.5-15.4); Immature Granulocytes % 0.5 % (0-4); Lymphocytes # 1.5 K/mcL (0.6-4.6); Lymphocytes % 13.5 %; Mean Corpuscular HGB Conc 31.3 g/dL (31.6-35.5); Mean Corpuscular Hemoglobin 29.9 pg (28.0-33.3); Mean Corpuscular Volume 95.5 fL (83.0-100.0); Mean Platelet Volume 11.4 fL (9.4-12.4); Monocytes # 0.9 K/mcL (0.0-1.3); Monocytes % 8.5 %; Neutrophils # 8.2 K/mcL (1.6-8.9); Platelet Count 522 K/mcL (140-400); Red Blood Count 2.64 M/mcL (3.82-4.97); Red Cell Distribution Width 28.3 % (11.5-14.5); Segmented Neutrophils % 75.2 %; White Blood Count 10.9 K/mcL (4.3-11.1)
[2021-03-01] MEDS: Apixaban 5 MG TABLET PO SCH ×2 (08:59→19:42)
[2021-03-01] MEDS: Folic Acid 1 MG TABLET PO SCH (09:00)
[2021-03-01] MEDS: Aspirin Enteric Coated 81 MG Tablet PO SCH (09:00)
[2021-03-01] MEDS: Insulin LISPRO 300 UNITS/3 ML VIAL SUBQ SCH ×3 (09:00→17:08)
[2021-03-01] MEDS: *HR* OxyCODONE Immed Rel 5 MG TABLET PO PRN ×2 (10:29→19:42)
[2021-03-01] MEDS: Gabapentin 300 MG CAPSULE PO SCH (19:41)
[2021-03-01] MEDS: Mirtazapine 15 MG TABLET PO SCH (19:42)
[2021-03-02] MEDS: Apixaban 5 MG TABLET PO SCH ×2 (08:15→20:52)
[2021-03-02] MEDS: Aspirin Enteric Coated 81 MG Tablet PO SCH (08:15)
[2021-03-02] MEDS: Folic Acid 1 MG TABLET PO SCH (08:15)
[2021-03-02] MEDS: Insulin LISPRO 300 UNITS/3 ML VIAL SUBQ SCH ×3 (08:15→16:39)
[2021-03-02] MEDS: *HR* OxyCODONE Immed Rel 5 MG TABLET PO PRN ×2 (12:57→20:51)
[2021-03-02] MEDS: Mirtazapine 15 MG TABLET PO SCH (20:52)
[2021-03-02] MEDS: Gabapentin 300 MG CAPSULE PO SCH (20:52)
[2021-03-03 07:38] LABS: Basophils # 0.1 K/mcL (0.0-0.2); Basophils % 1.3 %; Eosinophils # 0.2 K/mcL (0.0-0.6); Hematocrit 25.1 % (35.3-44.9); Immature Granulocytes % 0.2 % (0-4); Lymphocytes # 1.9 K/mcL (0.6-4.6); Lymphocytes % 21.6 %; Mean Corpuscular HGB Conc 31.9 g/dL (31.6-35.5); Mean Corpuscular Hemoglobin 30.8 pg (28.0-33.3); Mean Corpuscular Volume 96.5 fL (83.0-100.0); Mean Platelet Volume 11.3 fL (9.4-12.4); Monocytes # 0.7 K/mcL (0.0-1.3); Monocytes % 7.4 %; Platelet Count 602 K/mcL (140-400); Red Cell Distribution Width 29.6 % (11.5-14.5); Segmented Neutrophils % 67.5 %; White Blood Count 8.9 K/mcL (4.3-11.1)
[2021-03-03] MEDS: Insulin LISPRO 300 UNITS/3 ML VIAL SUBQ SCH ×3 (09:10→16:33)
[2021-03-03] MEDS: Aspirin Enteric Coated 81 MG Tablet PO SCH (10:39)
[2021-03-03] MEDS: Folic Acid 1 MG TABLET PO SCH (10:39)
[2021-03-03] MEDS: Apixaban 5 MG TABLET PO SCH ×2 (10:40→19:58)
[2021-03-03] MEDS ORDERED: Prochlorperazine 10 MG/2 ML VIAL IVP PRN (16:16)
[2021-03-03] MEDS: Mirtazapine 15 MG TABLET PO SCH (19:58)
[2021-03-03] MEDS: Gabapentin 300 MG CAPSULE PO SCH (19:58)
[2021-03-04] MEDS: *HR* OxyCODONE Immed Rel 5 MG TABLET PO PRN (09:28)
[2021-03-04] MEDS: Folic Acid 1 MG TABLET PO SCH (09:28)
[2021-03-04] MEDS: Aspirin Enteric Coated 81 MG Tablet PO SCH (09:29)
[2021-03-04] MEDS: Apixaban 5 MG TABLET PO SCH ×2 (09:29→21:03)
[2021-03-04] MEDS: Insulin LISPRO 300 UNITS/3 ML VIAL SUBQ SCH ×3 (09:33→16:20)
[2021-03-04] MEDS: Acetaminophen 325 MG TABLET PO PRN (21:03)
[2021-03-04] MEDS: Gabapentin 300 MG CAPSULE PO SCH (21:03)
[2021-03-04] MEDS: Mirtazapine 15 MG TABLET PO SCH (21:03)
[2021-03-05 06:04] LABS: Basophils # 0.1 K/mcL (0.0-0.2); Eosinophils # 0.2 K/mcL (0.0-0.6); Hematocrit 27.3 % (35.3-44.9); Hemoglobin 8.4 g/dL (11.5-15.4); Immature Granulocytes % 0.3 % (0-4); Lymphocytes # 2.5 K/mcL (0.6-4.6); Lymphocytes % 23.4 %; Mean Corpuscular HGB Conc 30.8 g/dL (31.6-35.5); Mean Corpuscular Hemoglobin 30.9 pg (28.0-33.3); Mean Corpuscular Volume 100.4 fL (83.0-100.0); Monocytes # 0.8 K/mcL (0.0-1.3); Monocytes % 7.4 %; Platelet Count 714 K/mcL (140-400); Red Blood Count 2.72 M/mcL (3.82-4.97); Red Cell Distribution Width 29.2 % (11.5-14.5); Segmented Neutrophils % 65.9 %; White Blood Count 10.7 K/mcL (4.3-11.1)
[2021-03-05 07:27] LABS: Spherocytes 2+ (Not Present); Target Cells 1+ (Not Present)
[2021-03-05 07:28] LABS: Platelet Estimate Increased (Normal)
[2021-03-05] MEDS: Insulin LISPRO 300 UNITS/3 ML VIAL SUBQ SCH ×3 (08:47→16:53)
[2021-03-05] MEDS: Aspirin Enteric Coated 81 MG Tablet PO SCH (08:48)
[2021-03-05] MEDS: Folic Acid 1 MG TABLET PO SCH (08:49)
[2021-03-05] MEDS: Apixaban 5 MG TABLET PO SCH ×2 (08:49→19:46)
[2021-03-05] MEDS: *HR* OxyCODONE Immed Rel 5 MG TABLET PO PRN (19:46)
[2021-03-05] MEDS: Mirtazapine 15 MG TABLET PO SCH (19:47)
[2021-03-05] MEDS: Gabapentin 300 MG CAPSULE PO SCH (19:47)
[2021-03-06] MEDS ORDERED: Ondansetron 4 MG/2 ML VIAL IVP ONE (00:07)
[2021-03-06] MEDS: *HR* Dextrose 50 % in Water (Syg) 50 ML SYRINGE IVP PRN (00:28)
[2021-03-06] MEDS: Prochlorperazine 10 MG/2 ML VIAL IVP PRN (06:23)
[2021-03-06] MEDS: Apixaban 5 MG TABLET PO SCH ×2 (08:46→21:05)
[2021-03-06] MEDS: Aspirin Enteric Coated 81 MG Tablet PO SCH (08:46)
[2021-03-06] MEDS: Folic Acid 1 MG TABLET PO SCH (08:47)
[2021-03-06] MEDS: Insulin LISPRO 300 UNITS/3 ML VIAL SUBQ SCH ×3 (08:51→17:42)
[2021-03-06] MEDS: *HR* OxyCODONE Immed Rel 5 MG TABLET PO PRN (13:20)
[2021-03-06] MEDS: Gabapentin 300 MG CAPSULE PO SCH (21:05)
[2021-03-06] MEDS: Mirtazapine 15 MG TABLET PO SCH (21:05)
[2021-03-07 06:06] LABS: Basophils # 0.1 K/mcL (0.0-0.2); Basophils % 0.5 %; Eosinophils # 0.1 K/mcL (0.0-0.6); Eosinophils % 0.6 %; Hematocrit 23.5 % (35.3-44.9); Hemoglobin 7.3 g/dL (11.5-15.4); Immature Granulocytes % 0.5 % (0-4); Lymphocytes # 1.7 K/mcL (0.6-4.6); Lymphocytes % 11.4 %; Mean Corpuscular HGB Conc 31.1 g/dL (31.6-35.5); Mean Corpuscular Hemoglobin 31.5 pg (28.0-33.3); Mean Corpuscular Volume 101.3 fL (83.0-100.0); Mean Platelet Volume 11.6 fL (9.4-12.4); Monocytes # 0.7 K/mcL (0.0-1.3); Monocytes % 4.7 %; Platelet Count 557 K/mcL (140-400); Red Blood Count 2.32 M/mcL (3.82-4.97); Segmented Neutrophils % 82.3 %
[2021-03-07 06:23] LABS: Neutrophils # 12.4 K/mcL (1.6-8.9)
[2021-03-07 07:21] LABS: Anisocytosis 2+ (Not Present); Spherocytes 2+ (Not Present); Stomatocytes 1+ (Not Present)
[2021-03-07 07:22] LABS: Platelet Estimate Increased (Normal)
[2021-03-07] MEDS: Insulin LISPRO 300 UNITS/3 ML VIAL SUBQ SCH ×3 (08:13→16:29)
[2021-03-07] MEDS: Aspirin Enteric Coated 81 MG Tablet PO SCH (08:15)
[2021-03-07] MEDS: Folic Acid 1 MG TABLET PO SCH (08:15)
[2021-03-07] MEDS: Apixaban 5 MG TABLET PO SCH (08:16)
[2021-03-07] MEDS: Gabapentin 300 MG CAPSULE PO SCH (20:41)
[2021-03-07] MEDS: Mirtazapine 15 MG TABLET PO SCH (20:42)
[2021-03-07] MEDS: *HR* OxyCODONE Immed Rel 5 MG TABLET PO PRN (21:19)
[2021-03-08 04:58] LABS: Hematocrit 23.5 % (35.3-44.9); Hemoglobin 7.4 g/dL (11.5-15.4)
[2021-03-08] MEDS: Insulin LISPRO 300 UNITS/3 ML VIAL SUBQ SCH ×4 (07:50→19:50)
[2021-03-08] MEDS: *HR* OxyCODONE Immed Rel 5 MG TABLET PO PRN ×2 (07:51→19:55)
[2021-03-08] MEDS: Aspirin Enteric Coated 81 MG Tablet PO SCH (07:54)
[2021-03-08] MEDS: Folic Acid 1 MG TABLET PO SCH (07:54)
[2021-03-08] MEDS: Gabapentin 300 MG CAPSULE PO SCH (19:48)
[2021-03-08] MEDS: Mirtazapine 15 MG TABLET PO SCH (19:48)
[2021-03-09] MEDS: Aspirin Enteric Coated 81 MG Tablet PO SCH (07:30)
[2021-03-09] MEDS: Folic Acid 1 MG TABLET PO SCH (07:31)
[2021-03-09] MEDS: Insulin LISPRO 300 UNITS/3 ML VIAL SUBQ SCH ×4 (07:33→19:51)
[2021-03-09 07:58] LABS: Basophils # 0.1 K/mcL (0.0-0.2); Basophils % 0.8 %; Eosinophils # 0.2 K/mcL (0.0-0.6); Eosinophils % 2.1 %; Hematocrit 17.2 % (35.3-44.9); Immature Granulocytes % 0.3 % (0-4); Lymphocytes # 0.8 K/mcL (0.6-4.6); Lymphocytes % 10.8 %; Mean Corpuscular HGB Conc 31.4 g/dL (31.6-35.5); Mean Corpuscular Hemoglobin 32.3 pg (28.0-33.3); Monocytes # 0.7 K/mcL (0.0-1.3); Monocytes % 10.2 %; Neutrophils # 5.5 K/mcL (1.6-8.9); Platelet Count 372 K/mcL (140-400); Red Blood Count 1.67 M/mcL (3.82-4.97); Segmented Neutrophils % 75.8 %; White Blood Count 7.3 K/mcL (4.3-11.1)
[2021-03-09 08:47] LABS: Hemoglobin 5.4 g/dL (11.5-15.4)
[2021-03-09 08:57] LABS: Anisocytosis 2+ (Not Present); Hypochromasia Present (Not Present); Platelet Estimate Normal (Normal)
[2021-03-09] MEDS ORDERED: 0.9 % Sodium Chloride 250 ML IVC SCH (09:00)
[2021-03-09 10:09] LABS: Basophils # 0.1 K/mcL (0.0-0.2); Eosinophils # 0.2 K/mcL (0.0-0.6); Eosinophils % 1.8 %; Hematocrit 26.2 % (35.3-44.9); Hemoglobin 8.5 g/dL (11.5-15.4); Immature Granulocytes % 0.5 % (0-4); Lymphocytes # 1.4 K/mcL (0.6-4.6); Lymphocytes % 13.3 %; Mean Corpuscular HGB Conc 32.4 g/dL (31.6-35.5); Mean Corpuscular Hemoglobin 32.4 pg (28.0-33.3); Mean Platelet Volume 11.9 fL (9.4-12.4); Monocytes # 0.7 K/mcL (0.0-1.3); Monocytes % 6.2 %; Neutrophils # 8.1 K/mcL (1.6-8.9); Platelet Count 577 K/mcL (140-400); Red Blood Count 2.62 M/mcL (3.82-4.97); Segmented Neutrophils % 77.2 %; White Blood Count 10.4 K/mcL (4.3-11.1)
[2021-03-09] MEDS: *HR* OxyCODONE Immed Rel 5 MG TABLET PO PRN (17:06)
[2021-03-09] MEDS: Gabapentin 300 MG CAPSULE PO SCH (19:50)
[2021-03-09] MEDS: Apixaban 5 MG TABLET PO SCH (19:50)
[2021-03-09] MEDS: Mirtazapine 15 MG TABLET PO SCH (19:50)
[2021-03-10 07:33] LABS: Hematocrit 23.2 % (35.3-44.9); Hemoglobin 7.5 g/dL (11.5-15.4)
[2021-03-10] MEDS: Aspirin Enteric Coated 81 MG Tablet PO SCH (08:41)
[2021-03-10] MEDS: Apixaban 5 MG TABLET PO SCH ×2 (08:41→21:11)
[2021-03-10] MEDS: Folic Acid 1 MG TABLET PO SCH (08:41)
[2021-03-10] MEDS: Insulin LISPRO 300 UNITS/3 ML VIAL SUBQ SCH ×4 (08:42→21:03)
[2021-03-10 10:23] LABS: Hematocrit 26.7 % (35.3-44.9); Hemoglobin 8.6 g/dL (11.5-15.4)
[2021-03-10] MEDS: *HR* OxyCODONE Immed Rel 5 MG TABLET PO PRN ×2 (10:25→21:11)
[2021-03-10] MEDS: Gabapentin 300 MG CAPSULE PO SCH (21:10)
[2021-03-10] MEDS: Mirtazapine 15 MG TABLET PO SCH (21:11)
[2021-03-11 06:59] LABS: Basophils # 0.1 K/mcL (0.0-0.2); Basophils % 0.5 %; Eosinophils # 0.1 K/mcL (0.0-0.6); Eosinophils % 1.3 %; Hematocrit 25.7 % (35.3-44.9); Hemoglobin 8.3 g/dL (11.5-15.4); Immature Granulocytes % 0.2 % (0-4); Lymphocytes # 1.7 K/mcL (0.6-4.6); Lymphocytes % 15.2 %; Mean Corpuscular HGB Conc 32.3 g/dL (31.6-35.5); Mean Corpuscular Hemoglobin 32.3 pg (28.0-33.3); Mean Platelet Volume 12.3 fL (9.4-12.4); Monocytes # 0.8 K/mcL (0.0-1.3); Monocytes % 6.9 %; Neutrophils # 8.4 K/mcL (1.6-8.9); Platelet Count 520 K/mcL (140-400); Red Blood Count 2.57 M/mcL (3.82-4.97); Segmented Neutrophils % 75.9 %
[2021-03-11 07:25] LABS: Hypochromasia Present (Not Present); Macrocytosis Present (Not Present); Stomatocytes 1+ (Not Present)
[2021-03-11 07:26] LABS: Platelet Estimate Increased (Normal)
[2021-03-11 07:28] LABS: Anisocytosis 2+ (Not Present)
[2021-03-11] MEDS: Insulin LISPRO 300 UNITS/3 ML VIAL SUBQ SCH ×4 (08:20→20:28)
[2021-03-11] MEDS: Aspirin Enteric Coated 81 MG Tablet PO SCH (08:22)
[2021-03-11] MEDS: Apixaban 5 MG TABLET PO SCH ×2 (08:22→20:27)
[2021-03-11] MEDS: Folic Acid 1 MG TABLET PO SCH (08:23)
[2021-03-11] MEDS: Mirtazapine 15 MG TABLET PO SCH (20:23)
[2021-03-11] MEDS: Gabapentin 300 MG CAPSULE PO SCH (20:24)
[2021-03-11] MEDS: *HR* OxyCODONE Immed Rel 5 MG TABLET PO PRN (20:27)
[2021-03-12] MEDS: Insulin LISPRO 300 UNITS/3 ML VIAL SUBQ SCH ×4 (09:00→22:21)
[2021-03-12] MEDS: Prochlorperazine 10 MG/2 ML VIAL IVP PRN ×2 (09:01→16:49)
[2021-03-12] MEDS: Folic Acid 1 MG TABLET PO SCH ×2 (11:30→12:22)
[2021-03-12] MEDS: Aspirin Enteric Coated 81 MG Tablet PO SCH ×2 (11:30→12:22)
[2021-03-12] MEDS: Apixaban 5 MG TABLET PO SCH ×3 (11:30→22:30)
[2021-03-12] MEDS: *HR* Dextrose 50 % in Water (Syg) 50 ML SYRINGE IVP PRN (16:51)
[2021-03-12] MEDS: Gabapentin 300 MG CAPSULE PO SCH (22:29)
[2021-03-12] MEDS: Acetaminophen 325 MG TABLET PO PRN (22:29)
[2021-03-12] MEDS: Mirtazapine 15 MG TABLET PO SCH (22:31)
[2021-03-13 05:41] LABS: Basophils # 0.1 K/mcL (0.0-0.2); Basophils % 0.9 %; Eosinophils # 0.1 K/mcL (0.0-0.6); Eosinophils % 0.7 %; Hematocrit 23.7 % (35.3-44.9); Hemoglobin 7.6 g/dL (11.5-15.4); Immature Granulocytes % 0.4 % (0-4); Lymphocytes # 1.6 K/mcL (0.6-4.6); Lymphocytes % 19.9 %; Mean Corpuscular HGB Conc 32.1 g/dL (31.6-35.5); Mean Corpuscular Hemoglobin 31.8 pg (28.0-33.3); Mean Corpuscular Volume 99.2 fL (83.0-100.0); Mean Platelet Volume 11.8 fL (9.4-12.4); Monocytes # 0.8 K/mcL (0.0-1.3); Monocytes % 10.1 %; Neutrophils # 5.5 K/mcL (1.6-8.9); Platelet Count 442 K/mcL (140-400); Red Blood Count 2.39 M/mcL (3.82-4.97)
[2021-03-13] MEDS: Prochlorperazine 10 MG/2 ML VIAL IVP PRN (09:26)
[2021-03-13] MEDS: Folic Acid 1 MG TABLET PO SCH (09:27)
[2021-03-13] MEDS: Apixaban 5 MG TABLET PO SCH ×2 (09:27→21:42)
[2021-03-13] MEDS: Aspirin Enteric Coated 81 MG Tablet PO SCH (09:27)
[2021-03-13] MEDS: Insulin LISPRO 300 UNITS/3 ML VIAL SUBQ SCH ×4 (09:28→21:43)
[2021-03-13] MEDS ORDERED: 0.9 % Sodium Chloride 250 ML ONE (14:14)
[2021-03-13] MEDS ORDERED: 0.9 % Sodium Chloride 250 ML IV ONE (14:15)
[2021-03-13] MEDS: Mirtazapine 15 MG TABLET PO SCH (21:42)
[2021-03-13] MEDS: Gabapentin 300 MG CAPSULE PO SCH (21:43)
[2021-03-14] MEDS: Aspirin Enteric Coated 81 MG Tablet PO SCH (08:32)
[2021-03-14] MEDS: Folic Acid 1 MG TABLET PO SCH (08:33)
[2021-03-14] MEDS: Apixaban 5 MG TABLET PO SCH ×2 (08:33→20:50)
[2021-03-14] MEDS: Insulin LISPRO 300 UNITS/3 ML VIAL SUBQ SCH ×4 (08:34→20:51)
[2021-03-14 09:22] LABS: Basophils # 0.1 K/mcL (0.0-0.2); Basophils % 0.8 %; Eosinophils % 0.5 %; Hematocrit 26.6 % (35.3-44.9); Hemoglobin 8.7 g/dL (11.5-15.4); Immature Granulocytes % 0.3 % (0-4); Lymphocytes # 1.4 K/mcL (0.6-4.6); Mean Corpuscular HGB Conc 32.7 g/dL (31.6-35.5); Mean Corpuscular Hemoglobin 31.9 pg (28.0-33.3); Mean Corpuscular Volume 97.4 fL (83.0-100.0); Mean Platelet Volume 11.7 fL (9.4-12.4); Monocytes # 0.3 K/mcL (0.0-1.3); Monocytes % 3.3 %; Platelet Count 502 K/mcL (140-400); Red Blood Count 2.73 M/mcL (3.82-4.97); Segmented Neutrophils % 77.1 %; White Blood Count 7.8 K/mcL (4.3-11.1)
[2021-03-14 09:38] LABS: BUN/Creatinine Ratio 18 (6-26); Blood Urea Nitrogen 15 mg/dL (6-20); Carbon Dioxide 30 mEq/L (23-29); Chloride 99 mEq/L (98-107); Glucose 291 mg/dL (70-105); Osmolality,Calculated 292 (280-300); Potassium 3.3 mEq/L (3.5-5.1); Sodium 135 mEq/L (136-145); eGFR For African Americans > 60 (> 60); eGFR For Non-African Americans > 60 (> 60)
[2021-03-14 11:03] LABS: Anisocytosis 2+ (Not Present); Hypochromasia Present (Not Present); Platelet Estimate Increased (Normal); Poikilocytosis 1+ (Not Present); Target Cells 1+ (Not Present)
[2021-03-14] MEDS: Mirtazapine 15 MG TABLET PO SCH (20:49)
[2021-03-14] MEDS: Gabapentin 300 MG CAPSULE PO SCH (20:50)
[2021-03-15] MEDS: Aspirin Enteric Coated 81 MG Tablet PO SCH (08:22)
[2021-03-15] MEDS: Apixaban 5 MG TABLET PO SCH ×2 (08:22→19:56)
[2021-03-15] MEDS: Folic Acid 1 MG TABLET PO SCH (08:22)
[2021-03-15] MEDS: Insulin LISPRO 300 UNITS/3 ML VIAL SUBQ SCH ×4 (08:23→19:58)
[2021-03-15] MEDS: Prochlorperazine 10 MG/2 ML VIAL IVP PRN (19:55)
[2021-03-15] MEDS: Gabapentin 300 MG CAPSULE PO SCH (19:56)
[2021-03-15] MEDS: Mirtazapine 15 MG TABLET PO SCH (19:56)
[2021-03-15] MEDS: *HR* OxyCODONE Immed Rel 5 MG TABLET PO PRN (19:57)
[2021-03-16] MEDS: Apixaban 5 MG TABLET PO SCH ×2 (09:23→19:35)
[2021-03-16] MEDS: Insulin LISPRO 300 UNITS/3 ML VIAL SUBQ SCH ×4 (09:23→21:08)
[2021-03-16] MEDS: Folic Acid 1 MG TABLET PO SCH (09:24)
[2021-03-16] MEDS: Aspirin Enteric Coated 81 MG Tablet PO SCH (09:24)
[2021-03-16] MEDS: Gabapentin 300 MG CAPSULE PO SCH (19:34)
[2021-03-16] MEDS: *HR* OxyCODONE Immed Rel 5 MG TABLET PO PRN (19:35)
[2021-03-16] MEDS: Mirtazapine 15 MG TABLET PO SCH (19:35)
[2021-03-17 06:36] LABS: Basophils # 0.1 K/mcL (0.0-0.2); Basophils % 0.5 %; Eosinophils # 0.1 K/mcL (0.0-0.6); Eosinophils % 0.6 %; Hematocrit 25.2 % (35.3-44.9); Hemoglobin 8.1 g/dL (11.5-15.4); Immature Granulocytes % 0.6 % (0-4); Lymphocytes # 1.6 K/mcL (0.6-4.6); Lymphocytes % 12.9 %; Mean Corpuscular HGB Conc 32.1 g/dL (31.6-35.5); Mean Corpuscular Hemoglobin 31.6 pg (28.0-33.3); Mean Corpuscular Volume 98.4 fL (83.0-100.0); Mean Platelet Volume 11.9 fL (9.4-12.4); Monocytes # 0.9 K/mcL (0.0-1.3); Monocytes % 7.4 %; Neutrophils # 9.8 K/mcL (1.6-8.9); Platelet Count 487 K/mcL (140-400); Red Blood Count 2.56 M/mcL (3.82-4.97); Red Cell Distribution Width 24.7 % (11.5-14.5); White Blood Count 12.6 K/mcL (4.3-11.1)
[2021-03-17 06:41] LABS: Alanine Aminotransferase 60 Units/L (7-52); Albumin 2.2 g/dL (3.5-5.7); Albumin/Globulin Ratio 0.5 (1.1-2.2); Alkaline Phosphatase > 1500 Units/L (34-104); Aspartate Amino Transferase 166 Units/L (13-39); BUN/Creatinine Ratio 18 (6-26); Bilirubin,Total 2.7 mg/dL (0.3-1.0); Blood Urea Nitrogen 17 mg/dL (6-20); Carbon Dioxide 29 mEq/L (23-29); Chloride 99 mEq/L (98-107); Globulin 4.2 g/dL (2.4-3.5); Glucose 205 mg/dL (70-105); Magnesium 1.7 mg/dL (1.6-2.6); Osmolality,Calculated 287 (280-300); Potassium 3.8 mEq/L (3.5-5.1); Sodium 135 mEq/L (136-145); Total Protein 6.4 g/dL (6.4-8.9); eGFR For African Americans > 60 (> 60); eGFR For Non-African Americans > 60 (> 60)
[2021-03-17 06:48] LABS: Anisocytosis 3+ (Not Present); Macrocytosis Present (Not Present)
[2021-03-17 06:51] LABS: Stomatocytes 1+ (Not Present)
[2021-03-17 06:55] LABS: Large Platelets Present (Not Present); Platelet Estimate Increased (Normal)
[2021-03-17 06:56] LABS: Hypochromasia Present (Not Present)
[2021-03-17] MEDS: Apixaban 5 MG TABLET PO SCH ×2 (08:41→20:58)
[2021-03-17] MEDS: Folic Acid 1 MG TABLET PO SCH (08:41)
[2021-03-17] MEDS: Aspirin Enteric Coated 81 MG Tablet PO SCH (08:41)
[2021-03-17] MEDS: Insulin LISPRO 300 UNITS/3 ML VIAL SUBQ SCH ×4 (08:48→21:17)
[2021-03-17] MEDS: Prochlorperazine 10 MG/2 ML VIAL IVP PRN (12:15)
[2021-03-17] MEDS: Gabapentin 300 MG CAPSULE PO SCH (20:58)
[2021-03-17] MEDS: Mirtazapine 15 MG TABLET PO SCH (20:59)
[2021-03-18] MEDS: Insulin LISPRO 300 UNITS/3 ML VIAL SUBQ SCH ×4 (08:15→22:46)
[2021-03-18] MEDS: Prochlorperazine 10 MG/2 ML VIAL IVP PRN ×2 (08:25→19:53)
[2021-03-18] MEDS: Apixaban 5 MG TABLET PO SCH ×2 (08:27→19:58)
[2021-03-18] MEDS: Aspirin Enteric Coated 81 MG Tablet PO SCH (08:27)
[2021-03-18] MEDS: Folic Acid 1 MG TABLET PO SCH (08:28)
[2021-03-18] MEDS: *HR* OxyCODONE Immed Rel 5 MG TABLET PO PRN (13:23)
[2021-03-18 19:48] VITALS: RESP 20
[2021-03-18] MEDS: Mirtazapine 15 MG TABLET PO SCH (19:57)
[2021-03-18] MEDS: Gabapentin 300 MG CAPSULE PO SCH (19:57)
[2021-03-19] MEDS: Aspirin Enteric Coated 81 MG Tablet PO SCH (07:50)
[2021-03-19] MEDS: Apixaban 5 MG TABLET PO SCH (07:50)
[2021-03-19] MEDS: Folic Acid 1 MG TABLET PO SCH (07:50)
[2021-03-19] MEDS: Insulin LISPRO 300 UNITS/3 ML VIAL SUBQ SCH ×4 (07:52→22:40)
[2021-03-19 08:32] LABS: Basophils # 0.1 K/mcL (0.0-0.2); Basophils % 0.5 %; Eosinophils % 0.2 %; Hematocrit 22.4 % (35.3-44.9); Hemoglobin 7.3 g/dL (11.5-15.4); Immature Granulocytes % 0.6 % (0-4); Lymphocytes # 1.5 K/mcL (0.6-4.6); Lymphocytes % 10.7 %; Mean Corpuscular HGB Conc 32.6 g/dL (31.6-35.5); Mean Corpuscular Hemoglobin 32.4 pg (28.0-33.3); Mean Corpuscular Volume 99.6 fL (83.0-100.0); Mean Platelet Volume 11.7 fL (9.4-12.4); Monocytes # 0.8 K/mcL (0.0-1.3); Monocytes % 5.7 %; Platelet Count 481 K/mcL (140-400); Red Blood Count 2.25 M/mcL (3.82-4.97); Red Cell Distribution Width 24.6 % (11.5-14.5); Segmented Neutrophils % 82.3 %; White Blood Count 14.1 K/mcL (4.3-11.1)
[2021-03-19 08:40] LABS: Neutrophils # 11.6 K/mcL (1.6-8.9)
[2021-03-19 10:56] LABS: Anisocytosis 1+ (Not Present); Platelet Estimate Normal (Normal); Stomatocytes 1+ (Not Present)
[2021-03-19 12:48] LABS: Bilirubin,Urine Small (Negative); Blood,Urine Trace-intact (Negative); Clarity,Urine Slightly Cloudy (Clear); Glucose,Urine (UA) Normal (Normal); Ketones,Urine Trace mg/dL (Negative); Leukocyte Esterase,Urine Trace (Negative); Nitrite,Urine Negative (Negative); PH,Urine 5.5 pH Units (5.0-8.0); Protein,Urine 30 mg/dL (Neg-Trace); Urobilinogen,Urine Normal (Normal)
[2021-03-19 12:52] LABS: Color,Urine Dark Yellow (Yellow)
[2021-03-19 12:56] LABS: Bacteria,Urine Few per hpf (None-Few); Budding Yeast,Urine Many per hpf (None Seen); Squamous Epithelial Cell,Urine Few per hpf (None-Few)
[2021-03-19] MEDS: cefTRIAXone 2,000 MG in 0.9 % Sodium Chloride Mini Bag 100 ML IVPB SCH (18:37)
[2021-03-19] MEDS: Mirtazapine 15 MG TABLET PO SCH (22:38)
[2021-03-19] MEDS: Gabapentin 300 MG CAPSULE PO SCH (22:38)
[2021-03-19] MEDS: *HR* OxyCODONE Immed Rel 5 MG TABLET PO PRN (22:40)
[2021-03-20 06:35] VITALS: BP 110/69; PULSE 90; TEMP 98.4; O2SAT 95
[2021-03-20] MEDS: Folic Acid 1 MG TABLET PO SCH (09:27)
[2021-03-20] MEDS: Aspirin Enteric Coated 81 MG Tablet PO SCH (09:27)
[2021-03-20] MEDS: Insulin LISPRO 300 UNITS/3 ML VIAL SUBQ SCH ×3 (09:28→17:00)
[2021-03-20] MEDS: cefTRIAXone 2,000 MG in 0.9 % Sodium Chloride Mini Bag 100 ML IVPB SCH (09:29)
[2021-03-20] MEDS: Prochlorperazine 10 MG/2 ML VIAL IVP PRN (12:59)
== END 2021-03-20 13:40 | disposition short-term general hospital (02) | DRG 374 ==
LOC: INPPIK 02-26 19:21
PROVIDERS: ADMIT Family Medicine; ATTEND Family Medicine